=== PATIENT | female | born 1960 | race Caucasian/White ===

== ENCOUNTER → 2017-01-16 | Outpatient (CLI) | payer OTHER ==
--- NOTE | 2017-01-16 23:03 | MR ---
EXAMINATION TYPE: MR brain wo con DATE OF EXAM: 01/16/2017 COMPARISON: NONE HISTORY: OTHER AMNESIA MEMORY LOSS per order. TECHNIQUE: Multiplanar, multisequence imaging of the brain and brainstem is performed without IV cont rast. FINDINGS: Diffusion weighted images demonstrate no evidence of a recent infarct or other diffusion abnormality. There is no worrisome extra-axial fluid collection. There is ventricular and sulcal prominence consis tent with diffuse cerebral atrophy. There are scattered foci of T2 hyperintensity seen throughout the periventricular white matter bilaterally. Lesions are nonspecific in appearance and distribution. Midline structures demonstrate normal morphology. The craniocervical junction appears within normal limits. Normal vascular flow voids are present. Dominant left vertebral artery is present. There is m ild mucosal thickening involving inferior maxillary sinuses bilaterally, left greater than right. IMPRESSION: There is mild to moderate diffuse cerebral atrophy and chronic small vessel ischemic varner ge appreciated.
== END | disposition home or self-care (01) ==
LOC: RADMRIMAIN 19:51
PROVIDERS: ATTEND Psychiatry & Neurology Neurology
DX: G31.9 Degenerative disease of nervous system, unspecified (principal); I67.82 Cerebral ischemia
CPT/HCPCS: 70551

== ENCOUNTER → 2018-06-20 | Outpatient (CLI) | payer OTHER ==
--- NOTE | 2018-06-21 15:11 | MR ---
EXAMINATION TYPE: MR brain wo/w con DATE OF EXAM: 06/20/2018 COMPARISON: 01/16/2017 HISTORY: Memory problem TECHNIQUE: Multiplanar, multisequence images of the brain and brainstem is performed without and with IV contras t, utilizing 7.5 mL intravenous Gadavist . FINDINGS: Diffusion weighted images demonstrate no evidence of a recent infarct or other diffusion ab normality. There is no extra-axial fluid collection. Moderate burden nonspecific white matter change s seen The ventricular system and cisternal spaces are symmetrically prominent compatible with mild a ge-related volume loss. No preferential lobar volume loss is seen. Midline structures demonstrate normal morphology. 6 mm pineal gland cyst is incidentally identified. Cerebral aqueduct is patent. The craniocervical junction appears within normal limits. Post contrast images demonstrate no abnormal enhancement. The dural venous sinuses appear patent. The visualized s inuses demonstrate circumferential mucosal thickening of the maxillary sinuses and moderate mucosal t hickening in the ethmoid sinuses extending within the right frontal recess into the right frontal sin us. Sphenoid sinuses and mastoid air cells are well aerated. Inspissated secretions are seen within t he posterior nasopharynx dependently. There is slightly decreased intensity within the posterior putamen and globus pallidus as well as wit hin the substantia nigra that can be seen in iron overload and neurodegenerative disorders. IMPRESSION: 1. Slightly decreased signal in the substantia nigra and basal ganglia that can be seen in neurodegen erative disorders with iron overload. 2. Moderate burden nonspecific white matter change, most commonly on the basis of chronic microangiop athy. This is similar in degree to the prior. 3. Mild cerebral atrophy is seen as noted on the prior with no predilection for particular lobe. 4. Moderate pansinusitis.
== END ==
LOC: RADMRIMAIN 14:42
PROVIDERS: ATTEND Internal Medicine
DX: G31.9 Degenerative disease of nervous system, unspecified (principal); R90.89 Other abnormal findings on diagnostic imaging of central nervous system; I73.9 Peripheral vascular disease, unspecified
CPT/HCPCS: 70553; A9585

== ENCOUNTER 2022-05-31 14:51 | Inpatient (IN) | payer MEDICARE, OTHER ==
[2022-05-31] MEDS ORDERED: LORazepam 2 MG/ML INJ IV STA ×2 (15:41→16:26)
[2022-05-31 16:00] LABS: Basophils % (A) 1 %; Eosinophils # (A) 0.1 k/uL (0-0.7); Eosinophils % (A) 1 %; HCT 39.2 % (34.0-46.0); HGB 13.3 gm/dL (11.4-16.0); Lymphocytes # (A) 1.5 k/uL (1.0-4.8); Lymphocytes % (A) 22 %; MCH 31.3 pg (25.0-35.0); MCV 91.9 fL (80.0-100.0); Mean Platelet Volume 7.3; Monocytes # (A) 0.3 k/uL (0-1.0); Monocytes % (A) 5 %; Neutrophils # (A) 4.6 k/uL (1.3-7.7); Neutrophils % (A) 70 %; Platelet Count 230 k/uL (150-450); RBC 4.27 m/uL (3.80-5.40); RDW 13.1 % (11.5-15.5); WBC 6.7 k/uL (3.8-10.6)
--- NOTE | 2022-05-31 16:16 | ED ---
General Adult HPI - General Chief complaint: Altered Mental Status Stated complaint: AMS Time Seen by Provider: 05/31/22 15:04 Source: family Mode of arrival: ambulatory Limitations: altered mental status - History of Present Illness Initial comments: This is a 62-year-old female with a past medical history including recently diagnosed Alzheimer's dementia 1 month ago presented to the emergency department after being sent in by her neurologist for further workup secondary to the patient's significant mental decline over the last 1 month. The patient was with her sister and [id number] who takes care of her and stated that the patient has had significant mental decline over the last 1 month. They did note that there was no acute changes over the last several days but they were advised to come to the emergency department for an MRI because of the acute changes. The patient herself was ANO 0 and was slightly anxious but was reportedly at her baseline. The patient denied any acute pain or distress. - Related Data Home Medications Medication Instructions Recorded Confirmed Cbd Gummies 10mg 10 mg PO TID PRN 05/31/22 05/31/22 Allergies Allergy/AdvReac Type Severity Reaction Status Date / Time No Known Allergies Allergy Verified 05/31/22 16:22 Review of Systems ROS Statement: Those systems with pertinent positive or pertinent negative responses have been documented in the HPI. ROS Other: All systems not noted in ROS Statement are negative. Past Medical History Past Medical History: Dementia History of Any Multi-Drug Resistant Organisms: None Reported Past Surgical History: No Surgical Hx Reported Past Psychological History: No Psychological Hx Reported Smoking Status: Never smoker Past Alcohol Use History: None Reported Past Drug Use History: Marijuana General Exam Limitations: altered mental status (ANOx0 at baseline but worsening over the past 1 month) General appearance: in no apparent distress, anxious Head exam: Present: atraumatic, normocephalic, normal inspection Eye exam: Present: normal appearance, PERRL Pupils: Present: normal accommodation ENT exam: Present: normal exam, normal oropharynx, mucous membranes moist Neck exam: Present: normal inspection, full ROM Respiratory exam: Present: normal lung sounds bilaterally Cardiovascular Exam: Present: regular rate, normal rhythm, normal heart sounds GI/Abdominal exam: Present: soft, normal bowel sounds Extremities exam: Present: normal inspection, full ROM Back exam: Present: normal inspection, full ROM Neurological exam: Present: altered (ANOx0), CN II-XII intact Psychiatric exam: Present: anxious Skin exam: Present: warm, dry Course Vital Signs 05/31/22 05/31/22 14:58 18:07 Temperature 98.2 F Pulse Rate 69 Respiratory 22 Rate Blood Pressure 138/68 O2 Sat by Pulse 98 95 Oximetry Medical Decision Making - Medical Decision Making Was pt. sent in by a medical professional or institution (, [facility], [employer]IST, urgent care, hospital, or [facility]...) When possible be specific @ -Yes, patient's neurologist Did you speak to anyone other than the patient for history (EMS, parent, family, police, friend...)? What history was obtained from this source @ -Yes, patient's sister, performance consultant Did you review nursing and triage notes (agree or disagree)? Why? @ -I reviewed and agree with nursing and triage notes Were old charts reviewed (outside hosp., previous admission, EMS record, old EKG , old radiological studies, urgent care reports/EKG's, [facility] records)? Report findings @ -No old charts were reviewed Differential Diagnosis (chest pain, altered mental status, abdominal pain women, abdominal pain men, vaginal bleeding, weakness, fever, dyspnea, syncope, headache, dizziness, GI bleed, back pain, seizure, CVA, palpatations, mental health)? @ -Worsening dementia, CVA, UTI EKG interpreted by me (3pts min.). @ -As above X-rays interpreted by me (1pt min.). @ -None done CT interpreted by me (1pt min.). @ -CT head was obtained and was interpreted by myself showing cerebral atrophy however there was no other pathology noted. A CTA of head and neck was also ordered however the patient had significant motion and could not sit still despite medications therefore it was nondiagnostic. U/S interpreted by me (1pt. min.). @ -None done What testing was considered but not performed or refused? (CT, X-rays, U/S, labs)? Why? @ -None What meds were considered but not given or refused? Why? @ -None Did you discuss the management of the patient with other professionals (pro fessionals i.e. , [facility], [employer]IST, lab, RT, psych nurse, social and political studies professor, mottler machine feeder, teacher, bomb squad officer, pillowcase folder)? Give summary @ -Yes, admitting team Anna Gonzales Was smoking cessation discussed for >3mins.? @ -No Was critical care preformed (if so, how long)? @ -No Were there social determinants of health that impacted care today? How? (Homelessness, low income, unemployed, alcoholism, drug addiction, transportation, low edu. Level, literacy, decrease access to med. care, nursing home, r ehab)? @ -No Was there de-escalation of care discussed even if they declined (Discuss DNR or withdrawal of care, Hospice)? DNR status @ -No What co-morbidities impacted this encounter? (DM, HTN, Smoking, COPD, CAD, Cancer, CVA, ARF, Chemo, Hep., AIDS, mental health diagnosis, sleep apnea, morbid obesity)? @ -Recently diagnosed dementia Was patient admitted / discharged? Hospital course, mention meds given and route, prescriptions, significant lab abnormalities, going to OR and other pertinent info. @ -The patient was seen and evaluated emergency department. Physical exam, the patient was ANO 0 and was minimally verbal. The patient was noted to be near her baseline however has been rapidly declining. Workup was obtained and was largely within normal limits. Urinalysis did show possible signs of UTI however there was significant contamination with squamous cells however the patient will be given a gram of Rocephin in the setting of the patient's continued altered mental status. Due to the patient being sent in by her neurologist for further workup and MRI, the patient will be admitted for altered mental status with neurology on consult for MRI and further evaluation. The patient's family was told of this and was agreeable. The patient was admitted in stable condition. Undiagnosed new problem with uncertain prognosis? @ -No Drug Therapy requiring intensive monitoring for toxicity (Heparin, Nitro, Insulin, Cardizem)? @ -No Were any procedures done? @ -No Diagnosis/symptom? @ -Altered mental status Acute, or Chronic, or Acute on Chronic? @ -Acute on chronic Uncomplicated (without systemic symptoms) or Complicated (systemic symptoms)? @ -Complicated Side effects of treatment? @ -No Exacerbation, Progression, or Severe Exacerbation? @ -No Poses a threat to life or bodily function? How? (Chest pain, USA, MA, pneumonia, PE, COPD, DKA, ARF, appy, cholecystitis, CVA, Diverticulitis, Homicidal, Suicidal, threat to staff... and all critical care pts) @ -Yes, continued significant altered mental status and worsening dementia can lead to continued deficits and possible . - Lab Data Result diagrams: 05/31/22 15:44 05/31/22 15:44 Lab Results 05/31/22 05/31/22 05/31/22 Range/Units 15:44 15:44 15:44 WBC 6.7 (3.8-10.6) k/uL RBC 4.27 (3.80-5.40) m/uL Hgb 13.3 (11.4-16.0) gm/dL Hct 39.2 (34.0-46.0) % MCV 91.9 (80.0-100.0) fL MCH 31.3 (25.0-35.0) pg MCHC 34.0 (31.0-37.0) g/dL RDW 13.1 (11.5-15.5) % Plt Count 230 (150-450) k/uL MPV 7.3 Neutrophils % 70 % Lymphocytes % 22 % Monocytes % 5 % Eosinophils % 1 % Basophils % 1 % Neutrophils # 4.6 (1.3-7.7) k/uL Lymphocytes # 1.5 (1.0-4.8) k/uL Monocytes # 0.3 (0-1.0) k/uL Eosinophils # 0.1 (0-0.7) k/uL Basophils # 0.0 (0-0.2) k/uL PT (9.0-12.0) sec INR (<1.2) APTT (22.0-30.0) sec Sodium 141 (137-145) mmol/L Potassium 4.1 (3.5-5.1) mmol/L Chloride 105 (98-107) mmol/L Carbon Dioxide 29 (22-30) mmol/L Anion Gap 7 mmol/L BUN 13 (7-17) mg/dL Creatinine 0.70 (0.52-1.04) mg/dL Est GFR (CKD-EPI)AfAm >90 (>60 ml/min/1.73 sqM) Est GFR (CKD-EPI)NonAf >90 (>60 ml/min/1.73 sqM) Glucose 99 (74-99) mg/dL Calcium 9.1 (8.4-10.2) mg/dL Magnesium 2.2 (1.6-2.3) mg/dL Total Bilirubin 0.8 (0.2-1.3) mg/dL AST 18 (14-36) U/L ALT 18 (4-34) U/L Alkaline Phosphatase 56 (38-126) U/L Troponin I <0.012 (0.000-0.034) ng/mL NT-Pro-B Natriuret Pep pg/mL Total Protein 7.6 (6.3-8.2) g/dL Albumin 4.5 (3.5-5.0) g/dL Lipase 134 (23-300) U/L Urine Color Urine Appearance (Clear) Urine pH (5.0-8.0) Ur Specific [place] (1.001-1.035) Urine Protein (Negative) Urine Glucose (UA) (Negative) Urine Ketones (Negative) Urine Blood (Negative) Urine Nitrite (Negative) Urine Bilirubin (Negative) Urine Urobilinogen (<2.0) mg/dL Ur Leukocyte Esterase (Negative) Urine RBC (0-5) /hpf Urine WBC (0-5) /hpf Ur Squamous Epith Cells (0-4) /hpf Calcium Oxalate Crystal (None) /hpf Urine Bacteria (None) /hpf Urine Mucus (None) /hpf 05/31/22 05/31/22 05/31/22 Range/Units 15:44 15:44 15:44 WBC (3.8-10.6) k/uL RBC (3.80-5.40) m/uL Hgb (11.4-16.0) gm/dL Hct (34.0-46.0) % MCV (80.0-100.0) fL MCH (25.0-35.0) pg MCHC (31.0-37.0) g/dL RDW (11.5-15.5) % Plt Count (150-450) k/uL MPV Neutrophils % % Lymphocytes % % Monocytes % % Eosinophils % % Basophils % % Neutrophils # (1.3-7.7) k/uL Lymphocytes # (1.0-4.8) k/uL Monocytes # (0-1.0) k/uL Eosinophils # (0-0.7) k/uL Basophils # (0-0.2) k/uL PT 11.0 (9.0-12.0) sec INR 1.1 (<1.2) APTT 21.4 L (22.0-30.0) sec Sodium (137-145) mmol/L Potassium (3.5-5.1) mmol/L Chloride (98-107) mmol/L Carbon Dioxide (22-30) mmol/L Anion Gap mmol/L BUN (7-17) mg/dL Creatinine (0.52-1.04) mg/dL Est GFR (CKD-EPI)AfAm (>60 ml/min/1.73 sqM) Est GFR (CKD-EPI)NonAf (>60 ml/min/1.73 sqM) Glucose (74-99) mg/dL Calcium (8.4-10.2) mg/dL Magnesium (1.6-2.3) mg/dL Total Bilirubin (0.2-1.3) mg/dL AST (14-36) U/L ALT (4-34) U/L Alkaline Phosphatase (38-126) U/L Troponin I (0.000-0.034) ng/mL NT-Pro-B Natriuret Pep 34 pg/mL Total Protein (6.3-8.2) g/dL Albumin (3.5-5.0) g/dL Lipase (23-300) U/L Urine Color Yellow Urine Appearance Cloudy H (Clear) Urine pH 5.5 (5.0-8.0) Ur Specific [place] 1.022 (1.001-1.035) Urine Protein Trace H (Negative) Urine Glucose (UA) Negative (Negative) Urine Ketones Negative (Negative) Urine Blood Small H (Negative) Urine Nitrite Negative (Negative) Urine Bilirubin Negative (Negative) Urine Urobilinogen <2.0 (<2.0) mg/dL Ur Leukocyte Esterase Moderate H (Negative) Urine RBC 2 (0-5) /hpf Urine WBC 8 H (0-5) /hpf Ur Squamous Epith Cells 19 H (0-4) /hpf Calcium Oxalate Crystal Occasional H (None) /hpf Urine Bacteria Rare H (None) /hpf Urine Mucus Many H (None) /hpf Disposition Clinical Impression: Altered mental status, Dementia, UTI (urinary tract infection) Disposition: ADMITTED IP TO THIS HOSP Condition: Stable Is patient prescribed a controlled substance at d/c from ED?: No Referrals: Lauren Torres MD [Primary Care Provider] - 1-2 days Time of Disposition: 17:00 Decision to Admit Reason: Admit from EC Decision Date: 05/31/22 Decision Time: 17:00
[2022-05-31 16:19] LABS: ALT 18 U/L (4-34); AST 18 U/L (14-36); African American GFR (CKD) >90 (>60 ml/min/1.73 sqM); Albumin 4.5 g/dL (3.5-5.0); Alkaline Phosphatase 56 U/L (38-126); Anion Gap 7 mmol/L; Appearance,Urine Cloudy (Clear); Bacteria,Urine Rare /hpf; Bilirubin,Urine Negative (Negative); Blood Urea Nitrogen 13 mg/dL (7-17); Blood,Urine Small (Negative); Calcium 9.1 mg/dL (8.4-10.2); Calcium Oxalate Crystals,Urine Occasional /hpf; Carbon Dioxide 29 mmol/L (22-30); Chloride 105 mmol/L (98-107); Color,Urine Yellow; Glucose 99 mg/dL (74-99); Glucose,Urine (UA) Negative (Negative); Ketones,Urine Negative (Negative); Leukocyte Esterase,Urine Moderate (Negative); Lipase 134 U/L (23-300); Magnesium 2.2 mg/dL (1.6-2.3); Mucus,Urine Many /hpf; Nitrite,Urine Negative (Negative); Non-African American GFR(CKD) >90 (>60 ml/min/1.73 sqM); PH, Urine 5.5 (5.0-8.0); Potassium 4.1 mmol/L (3.5-5.1); Protein,Urine Trace (Negative); RBC,Urine 2 /hpf (0-5); Sodium 141 mmol/L (137-145); Specific Gravity,Urine 1.022 (1.001-1.035); Squamous Epithelial Cell,Urine 19 /hpf (0-4); Total Bilirubin 0.8 mg/dL (0.2-1.3); Total Protein 7.6 g/dL (6.3-8.2); Urobilinogen,Urine <2.0 mg/dL (<2.0); WBC,Urine 8 /hpf (0-5)
--- NOTE | 2022-05-31 16:59 | CT ---
EXAMINATION TYPE: CT brain wo con DATE OF EXAM: 05/31/2022 COMPARISON: None HISTORY: AMS CT DLP: 1435.4 mGycm Automated exposure control for dose reduction was used. Images of the brain obtained with no contrast. There is cerebral cortical atrophy. There is no mass effect or midline shift. No sign of intracranial hemorrhage. Calvarium is intact. There is normal aeration of the mastoid sinuses. IMPRESSION: Cerebral atrophy. No acute intracranial abnormality.
[2022-05-31 17:25] LABS: INR 1.1 (<1.2); Partial Thromboplastin Time 21.4 sec (22.0-30.0)
--- NOTE | 2022-05-31 17:39 | CT ---
EXAMINATION TYPE: CT angio head neck DATE OF EXAM: 05/31/2022 COMPARISON: None HISTORY: AMS, h/o dementia, CTA attempted but pt was not cooperative CT DLP: 1435.4 mGycm Automated exposure control for dose reduction was used. CONTRAST: Performed with IV Contrast, patient injected with 65 mL of Isovue 370. There is significant motion artifact and the exam is nondiagnostic due to patient motion. 3-D postpro cess images are nondiagnostic
[2022-05-31] MEDS ORDERED: cefTRIAXone IN SWFI 1,000 MG/10 ML SYRINGE IVP STA (18:09)
[2022-05-31] MEDS ORDERED: NALOXONE 0.4 MG/ML 1 ML VIAL IV PRN (18:19)
[2022-05-31] MEDS ORDERED: hydrOXYzine HCL 25 MG TAB PO STA (18:56)
[2022-05-31] MEDS ORDERED: LORazepam 1 MG TAB PO STA (18:56)
[2022-06-01] MEDS: LORazepam 1 MG TAB PO PRN ×2 (00:32→08:41)
[2022-06-01 08:18] VITALS: PULSE 84
--- NOTE | 2022-06-01 10:40 | P.CNNES ---
History of Present Illness Consult date: 06/01/22 Requesting physician: Cristopher Tobar Reason for Consult: altered mental status History of Present Illness: This is a 62-year-old woman with history of Alzheimer's dementia and at baseline she is alert oriented 0-1 who presented emergency department after being sent by her neurologist for further workup for her significant mental decline over the past 1 month. History is obtained from patient's sister was at bedside. According to patient's sister that the patient had symptoms of memory loss for about 10 years initially and it was very mild/minimal and initially the were evaluated by one of the local neurologist and the patient had MRI and was told had white matter lesions but the neurologist did not feel the patient had dementia according to the patient's sister then about 5 years ago she was diagnosed with Alzheimer's dementia by a different neurology team (Dr. Arce team). According to the sister patient was tried on the Aricept in the past but could not tolerate it. It seems that the patient's mentation has been declining but worsening in the past 1 month in which she is very anxious not verbalizing and just screaming. According to patient's sister the patient does not have any history of stroke or seizure. There is no family history of dementia that she is aware of. Of note, the patient at baseline is oriented 0-1 and that's to self. Is able to feed the themselves needs some assistance going to bathroom once in the bathroom is able to care themselves. Ambulate without any assistance. The sister she had multiple MRIs and the last MRI she thinks was about a year ago or urinary half ago as well as had EEGs in the past. Again no history of strokes or seizures according to the sister. Some other workup turned our hospital visit consisted of: CBC with differential, basic metabolic panel is within normal limits. Urinalysis is questionable for UTI CT of the head is reported as cerebral atrophy. No acute intracranial abnormality. I feel the patient has bilateral parietal temporal atrophy more than her appropriate age. There is no acute subacute ischemia. There is no bleed. CT angiography of the head and neck is reported as there is significant motion artifact in the exam is not nondiagnostic due to the patient motion 3-D postprocessed images are nondiagnostic. Patient had MRI in 2017 and then the last MRI in our facility him able to see is 2018 and it's reported as slightly decreased signal in the substantia nigra basal ganglia that can be seen in neurodegenerative disorder with Benny overload. Moderate burden nonspecific white matter changes, most commonly on the basis of chronic microangiopathy. There is similar degree to the primary. Mild cerebral atrophy that is seen as noted in the prior with no prediction for particular lobe. Moderate pansinusitis. Review of Systems Review of system is limited but the per positive and negative as per HPI. Past Medical History Past Medical History: Dementia History of Any Multi-Drug Resistant Organisms: None Reported Past Surgical History: No Surgical Hx Reported Past Anesthesia/Blood Transfusion Reactions: No Reported Reaction Past Psychological History: No Psychological Hx Reported Smoking Status: Never smoker Past Alcohol Use History: None Reported Past Drug Use History: Marijuana Medications and Allergies Home Medications Medication Instructions Recorded Confirmed Type Cbd Gummies 10mg 10 mg PO TID PRN 05/31/22 05/31/22 History Allergies Allergy/AdvReac Type Severity Reaction Status Date / Time No Known Allergies Allergy Verified 05/31/22 16:22 Physical Examination - Vital Signs Vital Signs: Vital Signs Temp Pulse Pulse Resp BP BP Pulse Ox 06/01/22 07:43 98.7 F 84 24 141/85 97 06/01/22 00:40 97.5 F L 79 15 98 05/31/22 21:30 79 05/31/22 20:58 97.5 F L 83 15 138/98 96 05/31/22 20:56 18 05/31/22 19:02 98.4 F 70 18 129/66 98 05/31/22 18:07 82 95 05/31/22 14:58 98.2 F 69 22 138/68 98 Intake and Output 05/31/22 06/01/22 06/01/22 22:59 06:59 14:59 Other: Voiding Method Diaper # Voids 1 Weight 58.06 kg GENERAL: The patient is sitting in bed with head bend forward and covered in multiple blankets and just crying. CHEST: Unable to assess. LUNG: Unable to assess. Not labored breathing. ABDOMEN/GI: Unable to assess. NEUROLOGICAL: Very limited. Higher mental function: The patient is sitting and crying and mumbling. Not foll owing commands or verbalizing. Cranial nerves: Eyes are closed and resisting opening her eyes. No facial weakness. Rest is limited. Motor: The strength is very limited but spontanesouly moving uppers on own. Has her knees crossed. Cerebellum: Unable to assess. Sensation: Unable to assess. Reflexes (right/left): Unable to assess. Plantars Unable to assess. Results - Laboratory Findings CBC and BMP: 05/31/22 15:44 05/31/22 15:44 Abnormal Lab Findings: Abnormal Labs 05/31/22 05/31/22 15:44 15:44 APTT 21.4 L Urine Appearance Cloudy H Urine Protein Trace H Urine Blood Small H Ur Leukocyte Esterase Moderate H Urine WBC 8 H Ur Squamous Epith Cells 19 H Calcium Oxalate Crystal Occasional H Urine Bacteria Rare H Urine Mucus Many H Assessment and Plan Assessment: This is a 62-year-old woman with history of Alzheimer's dementia what had the dementia symptoms for about 10 years according to the sister but was officially diagnosed about 5 years ago. Her symptoms are progressive and it seems that she declined about the one month ago and all she does is crying and mumbles. At baseline she is alert oriented 0-1. Worsening of encephalopathy due to her progressive dementia Alzheimer's dementia (had symptoms for about 10 years but officially diagnosed 5 years ago) and appears young onset dementia Plan: * I ordered ammonia level, TSH, vitamin B12, folate * I ordered a routine EEG and we'll see if the patient will cooperate for the EEG to rule out any underlying seizure or discharges * Regarding MRI patient had multiple MRIs in the past and it seems last MRI was 1-1.5years ago. I'll attempt to get MRI once the patient is cooperative. If unable to get MRI recommend MRI as an outpatient. * I started her on Seroquel 25 mg daily at bedtime for agitation. Can go up to 50 mg daily at bedtime if needed. Please avoid Ativan or benzos which can worsen agitation in patient with dementia and can used as last resort. * The sister will like to retry Aricept again, so started on 5mg qhs. 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 Consider Brain PET scan and genetic testing for dementia as outpatient and will defer that to her local neurologist. Consider following-up with dementia clinic in [facility] for further evaluation. * Per primary team N.P. it does appear that she has acute UTI. Urine culture is ordered * We'll defer the rest of the medical management to primary team The plan was discussed with the patient's sister was at bedside in detail and primary team. Thank you for the consultation Time with Patient: Greater than 30
[2022-06-01] MEDS ORDERED: QUEtiapine 25 MG TAB PO STA (13:18)
[2022-06-01 13:49] VITALS: BMI 19.4
[2022-06-01 14:53] VITALS: BP 147/77; RESP 16; TEMP 98.6
--- NOTE | 2022-06-01 14:56 | P.HPIM ---
History of Present Illness H&P Date: 06/01/22 This is a 62-year-old female who presented to the emergency department with family after having an appointment at her neurologist office and had been having significant decline over the last month that is progressively getting worse. Sister who is her caregiver and lives with her reports she has noticed she has been having these crying attacks and mumbling "mama, mama" throughout most of the day and has not been eating as well as not sleeping well. Patient does not take any medications currently other than CBD dummies and neurology was hesitant to start medications given her advancing Alzheimer dementia. Recommended coming to the ER for further evaluation. Sister reports she normally is able to express when she has to PE or when she is hungry and has walked around with a walker in the home. Sister also reports also that she had been having some urinary frequency but denies any other symptoms. Patient follows with Dr. Torres in the outpatient setting with a past medical history of dementia and no other history reported. Patient was never a smoker and no reported alcohol although there is a past drug use history of marijuana. Patient did have urinalysis which was not impressive other than some leukocyte Estrace noted. Other labs revealed a normal WBC of 6.7, hemoglobin 13.3, platelets 2:30, sodium 141, potassium 4.1, BUN 13, creatinine 0.7, ammonia was less than 9, troponin was negative, BNP was 34 and lipase was 134. Patient was admitted under observation for altered mentation with neurology consult. EEG was ordered and attempted although patient unable to tolerate. Review Of Systems: Unable to assess as patient has advanced dementia and alert and oriented 0-1 PHYSICAL EXAMINATION: GENERAL: The patient is alert and oriented x0, thin built, cachectic HEENT: Pupils are round and equally reacting to light. EOMI. no scleral icterus. No conjunctival pallor. Normocephalic, atraumatic. No pharyngeal erythema. No thyromegaly. CARDIOVASCULAR: S1 and S2 muffled PULMONARY: Breath sounds clear to auscultation with no wheezing or rhonchi noted. ABDOMEN: soft. Nontender on exam. Thin, non-distended, normoactive bowel sounds. No palpable organomegaly. MUSCULOSKELETAL: No joint swelling or deformity. EXTREMITIES: No cyanosis, clubbing, or pedal edema. NEUROLOGICAL: Gross neurological examination did not reveal any focal deficits. SKIN: No rashes. Assessment: Altered mental status, secondary to advancing Alzheimer's dementia Concerns for possible acute urinary tract infection, present on admission, ruled out, likely asymptomatic bacteriuria GI prophylaxis DVT prophylaxis Full code Plan: Recommend to continue with current medications and management and neurology was consulted. Attempted EEG although unsuccessful as patient is noncompliant extremely agitated and restless during Patient likely with advancing Alzheimer's dementia with progression and CT of the brain was done showing cerebral atrophy with no acute intracranial abnor mality no mass effect or midline shift no sign of hemorrhage calvarium is intact and there is normal variation in the mastoid sinuses. Urine culture was sent and patient did receive a dose of IV ceftriaxone as there was some leukocyte esterase noted in the urine and will follow-up with culture Encouraged following up with primary care provider as well as neurologist in the outpatient setting Will start Seroquel 12.5 mg to 25 mg during the day and also with 25 mg at night and discuss with sister who is her caregiver at the bedside in detail today. Family would like to take her home today. Patient will be discharged today. The impression and plan of care has been dictated by Consuelo Scanlon, nurse practitioner as directed. Dr. Margarita MD I have performed a history and examination and MDM of this patient, discussed the same with the dictator, and agree with the dictator's assessment and plan as written ,documented as a scribe. Based on total visit time, I have performed more than 50% of the visit. Any additional findings or plans will be noted. Past Medical History Past Medical History: Dementia History of Any Multi-Drug Resistant Organisms: None Reported Past Surgical History: No Surgical Hx Reported Past Anesthesia/Blood Transfusion Reactions: No Reported Reaction Past Psychological History: No Psychological Hx Reported Smoking Status: Never smoker Past Alcohol Use History: None Reported Past Drug Use History: Marijuana Medications and Allergies Home Medications Medication Instructions Recorded Confirmed Type QUEtiapine [SEROquel] 12.5 mg PO DAILY #30 tab 06/01/22 Rx QUEtiapine [SEROquel] 25 mg PO HS 30 Days #30 tab 06/01/22 Rx Allergies Allergy/AdvReac Type Severity Reaction Status Date / Time No Known Allergies Allergy Verified 05/31/22 16:22 Physical Exam Vitals: Vital Signs Temp Pulse Pulse Resp BP BP Pulse Ox 06/01/22 07:43 98.7 F 84 24 141/85 97 06/01/22 00:40 97.5 F L 79 15 98 05/31/22 21:30 79 05/31/22 20:58 97.5 F L 83 15 138/98 96 05/31/22 20:56 18 05/31/22 19:02 98.4 F 70 18 129/66 98 05/31/22 18:07 82 95 05/31/22 14:58 98.2 F 69 22 138/68 98 Intake and Output 05/31/22 06/01/22 06/01/22 22:59 06:59 14:59 Other: Voiding Method Diaper # Voids 1 Weight 58.06 kg Results CBC & Chem 7: 05/31/22 15:44 05/31/22 15:44 Labs: Abnormal Lab Results - Last 24 Hours (Table) 05/31/22 05/31/22 Range/Units 15:44 15:44 APTT 21.4 L (22.0-30.0) sec Urine Appearance Cloudy H (Clear) Urine Protein Trace H (Negative) Urine Blood Small H (Negative) Ur Leukocyte Esterase Moderate H (Negative) Urine WBC 8 H (0-5) /hpf Ur Squamous Epith Cells 19 H (0-4) /hpf Calcium Oxalate Crystal Occasional H (None) /hpf Urine Bacteria Rare H (None) /hpf Urine Mucus Many H (None) /hpf Thrombosis Risk Factor Assmnt - Choose All That Apply Each Factor Represents 1 point: Age 41-60 years, Swollen legs (current) Other congenital or acquired thrombophilia - If yes, enter type in comment: No Thrombosis Risk Factor Assessment Total Risk Factor Score: 2 Thrombosis Risk Factor Assessment Level: Low Risk Assessment and Plan Time with Patient: Greater than 30
[2022-06-01] MEDS ORDERED: CYANOCOBALAMIN 1,000 MCG/ML 1 ML VIAL IM SCH (16:30)
[2022-06-01] MEDS ORDERED: QUEtiapine 25 MG TAB PO SCH (21:00)
[2022-06-01] MEDS ORDERED: DONEPEZIL 5 MG TAB PO SCH (21:00)
[2022-06-04] MEDS ORDERED: CYANOCOBALAMIN 500 MCG TAB PO SCH (09:00)
== END 2022-06-01 17:09 | disposition home or self-care (01) | DRG 57 ==
LOC: EC 14:51 → 5NMEDONC 18:20
PROVIDERS: ADMIT Hospitalist; ATTEND Hospitalist
DX: G30.9 Alzheimer's disease, unspecified (principal); F02.811 Dementia in other diseases classified elsewhere, unspecified severity, with agitation; G31.9 Degenerative disease of nervous system, unspecified; Z28.310 Unvaccinated for COVID-19; R82.71 Bacteriuria; J32.4 Chronic pansinusitis; Z91.199 Patient's noncompliance with other medical treatment and regimen due to unspecified reason; Z79.899 Other long term (current) drug therapy
CPT/HCPCS: 36415; 70450; 70496; 70498; 80053; 81001; 82140; 82607; 82746; 83690; 83735; 83880; 84443; 84484; 85025; 85610; 85730; 96374; 96375; 96376; 99285

== ENCOUNTER 2022-07-09 22:56 | Emergency (ER) | payer MEDICARE, OTHER ==
[2022-07-10 00:27] LABS: Basophils % (A) 0 %; Eosinophils # (A) 0.1 k/uL (0-0.7); Eosinophils % (A) 3 %; HCT 36.8 % (34.0-46.0); HGB 11.8 gm/dL (11.4-16.0); Lymphocytes # (A) 1.5 k/uL (1.0-4.8); Lymphocytes % (A) 33 %; MCH 29.8 pg (25.0-35.0); MCHC 32.2 g/dL (31.0-37.0); MCV 92.7 fL (80.0-100.0); Mean Platelet Volume 7.3; Monocytes # (A) 0.3 k/uL (0-1.0); Monocytes % (A) 7 %; Neutrophils # (A) 2.6 k/uL (1.3-7.7); Neutrophils % (A) 56 %; Platelet Count 188 k/uL (150-450); RBC 3.96 m/uL (3.80-5.40); RDW 12.9 % (11.5-15.5); WBC 4.7 k/uL (3.8-10.6)
[2022-07-10 00:39] LABS: ALT 24 U/L (4-34); AST 31 U/L (14-36); African American GFR (CKD) >90 (>60 ml/min/1.73 sqM); Albumin 3.7 g/dL (3.5-5.0); Alkaline Phosphatase 59 U/L (38-126); Anion Gap 7 mmol/L; Blood Urea Nitrogen 12 mg/dL (7-17); Calcium 8.8 mg/dL (8.4-10.2); Carbon Dioxide 30 mmol/L (22-30); Chloride 101 mmol/L (98-107); Glucose 77 mg/dL (74-99); Non-African American GFR(CKD) >90 (>60 ml/min/1.73 sqM); Potassium 3.8 mmol/L (3.5-5.1); Sodium 138 mmol/L (137-145); Total Bilirubin 0.4 mg/dL (0.2-1.3); Total Protein 6.3 g/dL (6.3-8.2)
--- NOTE | 2022-07-10 00:44 | XR ---
EXAM: XR Abdomen, 1 View CLINICAL HISTORY: ITS.REASON XR Reason: abdominal pain TECHNIQUE: Frontal supine view of the abdomen/pelvis. COMPARISON: No relevant prior studies available. FINDINGS: Gastrointestinal tract: Unremarkable. No dilation. Bones/joints: Unremarkable. IMPRESSION: No evidence of acute intra-abdominal pathology.
[2022-07-10 01:22] LABS: Appearance,Urine Clear (Clear); Bacteria,Urine Rare /hpf; Bilirubin,Urine Negative (Negative); Blood,Urine Negative (Negative); Color,Urine Light Yellow; Glucose,Urine (UA) Negative (Negative); Ketones,Urine Negative (Negative); Leukocyte Esterase,Urine Small (Negative); Mucus,Urine Rare /hpf; Nitrite,Urine Negative (Negative); PH, Urine 5.5 (5.0-8.0); Protein,Urine Negative (Negative); RBC,Urine 1 /hpf (0-5); Specific Gravity,Urine 1.005 (1.001-1.035); Squamous Epithelial Cell,Urine 2 /hpf (0-4); Urobilinogen,Urine <2.0 mg/dL (<2.0); WBC,Urine 3 /hpf (0-5)
--- NOTE | 2022-07-10 01:39 | ED ---
General Adult HPI - General Chief complaint: Psychiatric Symptoms Stated complaint: mental health Time Seen by Provider: 07/09/22 23:13 Source: EMS Mode of arrival: EMS Limitations: altered mental status - History of Present Illness Initial comments: This patient is a 62-year-old woman with history of dementia who is here to have evaluation for a constellation of symptoms going on over the course of tonight. The patient has been having suspected constipation. Family members report that she has not been able to have a bowel movement for about a week. The patient became quite anxious tonight. She started saying that she should kill herself and was hitting her head against the wall. They had her transported to the emergency department. When I interview the patient she is not able to give any history. She per family appears to be much calm her here. -: hour(s) Improves with: none Worsens with: none Treatments Prior to Arrival: none - Related Data Home Medications Medication Instructions Recorded Confirmed QUEtiapine [SEROquel] 25 mg PO TID 07/10/22 07/10/22 Allergies Allergy/AdvReac Type Severity Reaction Status Date / Time No Known Allergies Allergy Verified 07/10/22 16:32 Review of Systems ROS Statement: Those systems with pertinent positive or pertinent negative responses have been documented in the HPI. ROS Other: All systems not noted in ROS Statement are negative. Limitations: ROS unobtainable due to patients medical condition Constitutional: Denies: fever Respiratory: Denies: cough Cardiovascular: Denies: chest pain Gastrointestinal: Reports: abdominal pain, constipation Musculoskeletal: Denies: back pain Skin: Denies: rash Neurological: Denies: headache Psychiatric: Reports: suicidal thoughts Past Medical History Past Medical History: Dementia History of Any Multi-Drug Resistant Organisms: None Reported Past Surgical History: No Surgical Hx Reported Past Anesthesia/Blood Transfusion Reactions: No Reported Reaction Past Psychological History: No Psychological Hx Reported Smoking Status: Never smoker Past Alcohol Use History: None Reported Past Drug Use History: Marijuana General Exam Limitations: altered mental status General appearance: alert, in no apparent distress Head exam: Present: atraumatic, normocephalic Eye exam: Present: normal appearance. Absent: scleral icterus, conjunctival injection Neck exam: Present: normal inspection, full ROM Respiratory exam: Present: normal lung sounds bilaterally. Absent: respiratory distress, wheezes, rales, rhonchi, stridor Cardiovascular Exam: Present: regular rate, normal rhythm, normal heart sounds. Absent: systolic murmur, diastolic murmur, rubs, gallop GI/Abdominal exam: Present: soft. Absent: distended, tenderness, guarding, rebound, rigid, mass Extremities exam: Present: normal inspection Back exam: Present: normal inspection. Absent: CVA tenderness (R), CVA tenderness (L), vertebral tenderness Neurological exam: Present: alert Skin exam: Present: warm, dry, intact, normal color. Absent: rash Course Vital Signs 07/09/22 07/10/22 07/11/22 22:59 05:49 05:00 Temperature 97.6 F Pulse Rate 62 70 74 Respiratory 16 14 18 Rate Blood Pressure 119/65 115/83 116/83 O2 Sat by Pulse 100 97 98 Oximetry 07/11/22 07/12/22 07/13/22 14:30 08:00 06:42 Temperature Pulse Rate 62 71 63 Respiratory 16 18 18 Rate Blood Pressure 111/66 107/69 91/70 O2 Sat by Pulse 98 98 98 Oximetry 07/13/22 07/13/22 07/14/22 10:19 15:11 08:47 Temperature 97.9 F Pulse Rate 64 59 L Respiratory 16 18 Rate Blood Pressure 92/68 117/94 O2 Sat by Pulse 95 100 Oximetry 07/14/22 17:05 Temperature Pulse Rate 74 Respiratory 18 Rate Blood Pressure 116/84 O2 Sat by Pulse 96 Oximetry EKG Findings - EKG Results: EKG: interpreted by ERMD, sinus rhythm, normal axis, normal QRS, normal ST/T EKG shows: bradycardia (Rate 55 bpm) Medical Decision Making - Medical Decision Making This patient is a 62-year-old woman with history of dementia brought here after she had reportedly made suicidal statements at home and then manifesting self harming behavior. Here the patient is not making suicidal statements but is medically cleared for EPS evaluation and they felt the patient may benefit from transfer to psychiatric facility. Was pt. sent in by a medical professional or institution (, PA, ROLL GRINDER, urgent care, hospital, or custodial...) When possible be specific @ -[No] Did you speak to anyone other than the patient for history (EMS, parent, family, police, friend...)? What history was obtained from this source @ -[Patient's daughter Did you review nursing and triage notes (agree or disagree)? Why? @ -[I reviewed and agree with nursing and triage notes] Were old charts reviewed (outside hosp., previous admission, EMS record, old EKG, old radiological studies, urgent care reports/EKG's, custodial records)? Report findings @ -[No old charts were reviewed] Differential Diagnosis (chest pain, altered mental status, abdominal pain women, abdominal pain men, vaginal bleeding, weakness, fever, dyspnea, syncope, headache, dizziness, GI bleed, back pain, seizure, CVA, palpatations, mental health, musculoskeletal)? @ -[Differential Mental Health Depression, anxiety, bipolar, psychosis, schizophrenia, borderline personality, situational depression, adjustment disorder, behavioral disorder, brain tumor, malingering, substance abuse, encephalopathy, medication reaction, dementia, hypothyroidism, degenerative neurologic disorder, lupus.... This is not meant to be all-inclusive list EKG interpreted by me (3pts min.). @ -[ X-rays interpreted by me (1pt min.). @ -[None done] CT interpreted by me (1pt min.). @ -[None done] U/S interpreted by me (1pt. min.). @ -[None done] What testing was considered but not performed or refused? (CT, X-rays, U/S, labs)? Why? @ -[None] What meds were considered but not given or refused? Why? @ -[None] Did you discuss the management of the patient with other professionals (professionals i.e. , PA, ROLL GRINDER, lab, RT, psych nurse, social human services assistants, pail tester, teacher, armor officer, supportive employment case manager)? Give summary @ -[No] Was smoking cessation discussed for >3mins.? @ -[No] Was critical care preformed (if so, how long)? @ -[No] Were there social determinants of health that impacted care today? How? (Homelessness, low income, unemployed, alcoholism, drug addiction, transportation, low edu. Level, literacy, decrease access to med. care, retirement, rehab)? @ -[No] Was there de-escalation of care discussed even if they declined (Discuss DNR or withdrawal of care, Hospice)? DNR status @ -[No] What co-morbidities impacted this encounter? (DM, HTN, Smoking, COPD, CAD, Cancer, CVA, ARF, Chemo, Hep., AIDS, mental health diagnosis, sleep apnea, morbid obesity)? @ -[Dementia Was patient admitted / discharged? Hospital course, mention meds given and route, prescriptions, significant lab abnormalities, going to OR and other pertinent info. @ -[hospital course] Undiagnosed new problem with uncertain prognosis? @ -[No] Drug Therapy requiring intensive monitoring for toxicity (Heparin, Nitro, In sulin, Cardizem)? @ -[No] Were any procedures done? @ -[No] Diagnosis/symptom? @ -[Mood disorder Acute, or Chronic, or Acute on Chronic? @ -[Acute Uncomplicated (without systemic symptoms) or Complicated (systemic symptoms)? @ -[default] Side effects of treatment? @ -[No] Exacerbation, Progression, or Severe Exacerbation? @ -[No] Poses a threat to life or bodily function? How? (Chest pain, [place], [place], pneumonia, PE, COPD, DKA, ARF, appy, cholecystitis, CVA, Diverticulitis, Homicidal, Suicidal, threat to staff... and all critical care pts) @ -[No] - Lab Data Result diagrams: 07/09/22 23:42 07/10/22 07:27 Lab Results 07/09/22 07/09/22 07/10/22 Range/Units 23:42 23:42 00:33 WBC 4.7 (3.8-10.6) k/uL RBC 3.96 (3.80-5.40) m/uL Hgb 11.8 (11.4-16.0) gm/dL Hct 36.8 (34.0-46.0) % MCV 92.7 (80.0-100.0) fL MCH 29.8 (25.0-35.0) pg MCHC 32.2 (31.0-37.0) g/dL RDW 12.9 (11.5-15.5) % Plt Count 188 (150-450) k/uL MPV 7.3 Neutrophils % 56 % Lymphocytes % 33 % Monocytes % 7 % Eosinophils % 3 % Basophils % 0 % Neutrophils # 2.6 (1.3-7.7) k/uL Lymphocytes # 1.5 (1.0-4.8) k/uL Monocytes # 0.3 (0-1.0) k/uL Eosinophils # 0.1 (0-0.7) k/uL Basophils # 0.0 (0-0.2) k/uL Sodium 138 (137-145) mmol/L Potassium 3.8 (3.5-5.1) mmol/L Chloride 101 (98-107) mmol/L Carbon Dioxide 30 (22-30) mmol/L Anion Gap 7 mmol/L BUN 12 (7-17) mg/dL Creatinine 0.68 (0.52-1.04) mg/dL Est GFR (CKD-EPI)AfAm >90 (>60 ml/min/1.73 sqM) Est GFR (CKD-EPI)NonAf >90 (>60 ml/min/1.73 sqM) Glucose 77 (74-99) mg/dL Calcium 8.8 (8.4-10.2) mg/dL Total Bilirubin 0.4 (0.2-1.3) mg/dL AST 31 (14-36) U/L ALT 24 (4-34) U/L Alkaline Phosphatase 59 (38-126) U/L Total Protein 6.3 (6.3-8.2) g/dL Albumin 3.7 (3.5-5.0) g/dL Urine Color Light Yellow Urine Appearance Clear (Clear) Urine pH 5.5 (5.0-8.0) Ur Specific [place] 1.005 (1.001-1.035) Urine Protein Negative (Negative) Urine Glucose (UA) Negative (Negative) Urine Ketones Negative (Negative) Urine Blood Negative (Negative) Urine Nitrite Negative (Negative) Urine Bilirubin Negative (Negative) Urine Urobilinogen <2.0 (<2.0) mg/dL Ur Leukocyte Esterase Small H (Negative) Urine RBC 1 (0-5) /hpf Urine WBC 3 (0-5) /hpf Ur Squamous Epith Cells 2 (0-4) /hpf Urine Bacteria Rare H (None) /hpf Urine Mucus Rare H (None) /hpf Urine Opiates Screen (NotDetected) Ur Oxycodone Screen (NotDetected) Urine Methadone Screen (NotDetected) Ur Propoxyphene Screen (NotDetected) Ur Barbiturates Screen (NotDetected) U Tricyclic Antidepress (NotDetected) Ur Phencyclidine Scrn (NotDetected) Ur Amphetamines Screen (NotDetected) U Methamphetamines Scrn (NotDetected) U Benzodiazepines Scrn (NotDetected) Urine Cocaine Screen (NotDetected) U Marijuana (THC) Screen (NotDetected) Serum Alcohol mg/dL Influenza Type A (PCR) (Not Detectd) Influenza Type B (PCR) (Not Detectd) RSV (PCR) (Not Detectd) SARS-CoV-2 (PCR) (Not Detectd) 07/10/22 07/10/22 07/10/22 Range/Units 00:33 05:53 07:27 WBC (3.8-10.6) k/uL RBC (3.80-5.40) m/uL Hgb (11.4-16.0) gm/dL Hct (34.0-46.0) % MCV (80.0-100.0) fL MCH (25.0-35.0) pg MCHC (31.0-37.0) g/dL RDW (11.5-15.5) % Plt Count (150-450) k/uL MPV Neutrophils % % Lymphocytes % % Monocytes % % Eosinophils % % Basophils % % Neutrophils # (1.3-7.7) k/uL Lymphocytes # (1.0-4.8) k/uL Monocytes # (0-1.0) k/uL Eosinophils # (0-0.7) k/uL Basophils # (0-0.2) k/uL Sodium 141 (137-145) mmol/L Potassium 4.0 (3.5-5.1) mmol/L Chloride 105 (98-107) mmol/L Carbon Dioxide 31 H (22-30) mmol/L Anion Gap 5 mmol/L BUN 9 (7-17) mg/dL Creatinine 0.64 (0.52-1.04) mg/dL Est GFR (CKD-EPI)AfAm >90 (>60 ml/min/1.73 sqM) Est GFR (CKD-EPI)NonAf >90 (>60 ml/min/1.73 sqM) Glucose 86 (74-99) mg/dL Calcium 8.8 (8.4-10.2) mg/dL Total Bilirubin 0.5 (0.2-1.3) mg/dL AST 30 (14-36) U/L ALT 24 (4-34) U/L Alkaline Phosphatase 57 (38-126) U/L Total Protein 6.1 L (6.3-8.2) g/dL Albumin 3.5 (3.5-5.0) g/dL Urine Color Urine Appearance (Clear) Urine pH (5.0-8.0) Ur Specific [place] (1.001-1.035) Urine Protein (Negative) Urine Glucose (UA) (Negative) Urine Ketones (Negative) Urine Blood (Negative) Urine Nitrite (Negative) Urine Bilirubin (Negative) Urine Urobilinogen (<2.0) mg/dL Ur Leukocyte Esterase (Negative) Urine RBC (0-5) /hpf Urine WBC (0-5) /hpf Ur Squamous Epith Cells (0-4) /hpf Urine Bacteria (None) /hpf Urine Mucus (None) /hpf Urine Opiates Screen Not Detected (NotDetected) Ur Oxycodone Screen Not Detected (NotDetected) Urine Methadone Screen Not Detected (NotDetected) Ur Propoxyphene Screen Not Detected (NotDetected) Ur Barbiturates Screen Not Detected (NotDetected) U Tricyclic Antidepress Detected H (NotDetected) Ur Phencyclidine Scrn Not Detected (NotDetected) Ur Amphetamines Screen Not Detected (NotDetected) U Methamphetamines Scrn Not Detected (NotDetected) U Benzodiazepines Scrn Not Detected (NotDetected) Urine Cocaine Screen Not Detected (NotDetected) U Marijuana (THC) Screen Detected H (NotDetected) Serum Alcohol mg/dL Influenza Type A (PCR) Not Detected (Not Detectd) Influenza Type B (PCR) Not Detected (Not Detectd) RSV (PCR) Not Detected (Not Detectd) SARS-CoV-2 (PCR) Not Detected (Not Detectd) 07/10/22 07/14/22 Range/Units 07:27 09:43 WBC (3.8-10.6) k/uL RBC (3.80-5.40) m/uL Hgb (11.4-16.0) gm/dL Hct (34.0-46.0) % MCV (80.0-100.0) fL MCH (25.0-35.0) pg MCHC (31.0-37.0) g/dL RDW (11.5-15.5) % Plt Count (150-450) k/uL MPV Neutrophils % % Lymphocytes % % Monocytes % % Eosinophils % % Basophils % % Neutrophils # (1.3-7.7) k/uL Lymphocytes # (1.0-4.8) k/uL Monocytes # (0-1.0) k/uL Eosinophils # (0-0.7) k/uL Basophils # (0-0.2) k/uL Sodium (137-145) mmol/L Potassium (3.5-5.1) mmol/L Chloride (98-107) mmol/L Carbon Dioxide (22-30) mmol/L Anion Gap mmol/L BUN (7-17) mg/dL Creatinine (0.52-1.04) mg/dL Est GFR (CKD-EPI)AfAm (>60 ml/min/1.73 sqM) Est GFR (CKD-EPI)NonAf (>60 ml/min/1.73 sqM) Glucose (74-99) mg/dL Calcium (8.4-10.2) mg/dL Total Bilirubin (0.2-1.3) mg/dL AST (14-36) U/L ALT (4-34) U/L Alkaline Phosphatase (38-126) U/L Total Protein (6.3-8.2) g/dL Albumin (3.5-5.0) g/dL Urine Color Light Yellow Urine Appearance Clear (Clear) Urine pH 7.5 (5.0-8.0) Ur Specific [place] 1.006 (1.001-1.035) Urine Protein Negative (Negative) Urine Glucose (UA) Negative (Negative) Urine Ketones Negative (Negative) Urine Blood Negative (Negative) Urine Nitrite Negative (Negative) Urine Bilirubin Negative (Negative) Urine Urobilinogen <2.0 (<2.0) mg/dL Ur Leukocyte Esterase Negative (Negative) Urine RBC (0-5) /hpf Urine WBC (0-5) /hpf Ur Squamous Epith Cells (0-4) /hpf Urine Bacteria (None) /hpf Urine Mucus (None) /hpf Urine Opiates Screen (NotDetected) Ur Oxycodone Screen (NotDetected) Urine Methadone Screen (NotDetected) Ur Propoxyphene Screen (NotDetected) Ur Barbiturates Screen (NotDetected) U Tricyclic Antidepress (NotDetected) Ur Phencyclidine Scrn (NotDetected) Ur Amphetamines Screen (NotDetected) U Methamphetamines Scrn (NotDetected) U Benzodiazepines Scrn (NotDetected) Urine Cocaine Screen (NotDetected) U Marijuana (THC) Screen (NotDetected) Serum Alcohol <10 mg/dL Influenza Type A (PCR) (Not Detectd) Influenza Type B (PCR) (Not Detectd) RSV (PCR) (Not Detectd) SARS-CoV-2 (PCR) (Not Detectd) Disposition Clinical Impression: Dementia, Mood disorder Disposition: OTHER INSTITUTION NOT DEFINED Condition: Fair Is patient prescribed a controlled substance at d/c from ED?: No Referrals: Lauren Torres MD [Primary Care Provider] - 1-2 days - Out of Hospital Transfer - Req. Specs Out of Hospital Transfer - Requested Specifics: Psychiatric Non-ICU
[2022-07-10] MEDS ORDERED: LORazepam 1 MG TAB PO STA ×3 (02:49→17:59)
[2022-07-10 03:57] LABS: Amphetamine Screen,Urine Not Detected (NotDetected); Barbiturate Screen,Urine Not Detected (NotDetected); Benzodiazepines Screen,Urine Not Detected (NotDetected); Cocaine Screen,Urine Not Detected (NotDetected); Methadone Screen, Urine Not Detected (NotDetected); Opiate Screen,Urine Not Detected (NotDetected); Oxycodone Screen, Urine Not Detected (NotDetected); Phencyclidine Screen,Urine Not Detected (NotDetected); Tricyclic Antidepressant,Urine Detected (NotDetected); Urn Cannabinoid Scrn Detected (NotDetected)
[2022-07-10] MEDS ORDERED: traZODone HCL 50 MG TAB PO ONE (04:25)
[2022-07-10 08:24] LABS: ALT 24 U/L (4-34); AST 30 U/L (14-36); African American GFR (CKD) >90 (>60 ml/min/1.73 sqM); Albumin 3.5 g/dL (3.5-5.0); Alkaline Phosphatase 57 U/L (38-126); Anion Gap 5 mmol/L; Blood Urea Nitrogen 9 mg/dL (7-17); Calcium 8.8 mg/dL (8.4-10.2); Carbon Dioxide 31 mmol/L (22-30); Chloride 105 mmol/L (98-107); Glucose 86 mg/dL (74-99); Non-African American GFR(CKD) >90 (>60 ml/min/1.73 sqM); Sodium 141 mmol/L (137-145); Total Bilirubin 0.5 mg/dL (0.2-1.3); Total Protein 6.1 g/dL (6.3-8.2)
[2022-07-10] MEDS ORDERED: OLANZapine 10 MG TAB PO STA (19:34)
[2022-07-10] MEDS: MELATONIN 3 MG TABLET PO SCH (22:19)
[2022-07-11] MEDS: MELATONIN 3 MG TABLET PO SCH ×2 (21:44→21:45)
[2022-07-11] MEDS ORDERED: OLANZapine 10 MG TAB PO ONE (21:58)
[2022-07-11] MEDS ORDERED: OLANZapine 10 MG TAB PO STA (21:59)
[2022-07-12] MEDS ORDERED: traZODone HCL 50 MG TAB PO ONE (05:14)
--- NOTE | 2022-07-12 12:33 | XR ---
EXAMINATION TYPE: XR foot complete RT, XR ankle complete RT DATE OF EXAM: 07/12/2022 COMPARISON: NONE HISTORY: Swelling TECHNIQUE: Frontal, lateral and oblique images of the right foot and ankle are obtained. FINDINGS: There is no acute fracture/dislocation evident. Ankle mortise is intact. No osseous erosio ns. The joint spaces appear within normal limits. Small plantar and posterior calcaneal enthesophyte s. Diffuse soft tissue swelling most pronounced over the dorsal midfoot and ankle. IMPRESSION: 1. There is no acute fracture or dislocation seen. 2. Diffuse soft tissue swelling most pronounced over the dorsal midfoot and ankle.
[2022-07-12] MEDS ORDERED: LORazepam 1 MG TAB PO STA (12:43)
--- NOTE | 2022-07-12 15:09 | US ---
EXAMINATION TYPE: US venous doppler duplex LE RT DATE OF EXAM: 07/12/2022 2:57 PM COMPARISON: NONE CLINICAL INDICATION: Female, 62 years old with history of swelling; Dementia pt. Portable EC exam. Ultrasound exam was attempted x 2. Patient was given ativan. SIDE PERFORMED: Right TECHNIQUE: The lower extremity deep venous system is examined utilizing real time linear array sonog ayo with graded compression, doppler sonography and color-flow sonography. VESSELS IMAGED: Common Femoral Vein Deep Femoral Vein- not visualized Greater Saphenous Vein *- Not visualized Femoral Vein Popliteal Vein Small Saphenous Vein *-not visualized Proximal Calf Veins- not visualized (* superficial vessels) Extremely limited exam due to combative state and AMS Right Leg: No DVT visualized in Femoral vein and proximal popliteal vein was compressible. Limited and suboptimal scan. IMPRESSION: 1. Very limited examination due to patient's mental status. 2. No obvious deep venous thrombosis within the right lower extremity structures visualized.
[2022-07-13 15:11] VITALS: TEMP 97.9
[2022-07-13] MEDS ORDERED: LORazepam 1 MG TAB PO STA ×2 (18:23→19:09)
[2022-07-13] MEDS ORDERED: OLANZapine 10 MG TAB PO STA (22:16)
[2022-07-14 08:49] VITALS: RESP 18
[2022-07-14 10:06] LABS: Appearance,Urine Clear (Clear); Bilirubin,Urine Negative (Negative); Blood,Urine Negative (Negative); Color,Urine Light Yellow; Glucose,Urine (UA) Negative (Negative); Ketones,Urine Negative (Negative); Leukocyte Esterase,Urine Negative (Negative); Nitrite,Urine Negative (Negative); PH, Urine 7.5 (5.0-8.0); Protein,Urine Negative (Negative); Specific Gravity,Urine 1.006 (1.001-1.035); Urobilinogen,Urine <2.0 mg/dL (<2.0)
[2022-07-14] MEDS ORDERED: OLANZapine 10 MG VIAL IM STA (12:06)
[2022-07-14 17:06] VITALS: BP 116/84; PULSE 74
== END 2022-07-14 17:06 | disposition other institution (70) ==
LOC: EC 22:56
DX: F03.93 Unspecified dementia, unspecified severity, with mood disturbance (principal); F39 Unspecified mood [affective] disorder; F12.90 Cannabis use, unspecified, uncomplicated; Z20.822 Contact with and (suspected) exposure to COVID-19
CPT/HCPCS: 36415 ×2; 93005; 80053 ×2; 85025; 81003; 81001; 80306; 87636; 74018; 99285; 96372; G0480; 80320